=== PATIENT | female | born 1965 | race Caucasian/White ===

== ENCOUNTER 2017-07-10 06:27 | Day surgery (SDC) | payer OTHER ==
[~2017-07-10] VITALS: Ht 162.6 cm; Wt 76.7 kg
[~2017-07-10 06:27] MED LIST: MULTIVITAMINS1 EAC8 PO; PAIN RELIEVER1 EAC3 PO
[2017-07-10] MEDS ORDERED: BENADRYL25 MG PO (06:44)
--- NOTE | 2017-07-10 07:48 | NUR ---
07/10/17 0748 Dianelys Jerome TO PACU, RESP EVEN UNLABORED. AWAKENS TO LOUD VOICE
--- NOTE | 2017-07-10 11:33 | NUR ---
VISITRED WITH PT'S DOMENICO. HE SEEMED VERY CONFIDENT THAT TODAY WAS JUST A ROUTINE PROCEDURE. EXPRESSED CONFIDENCE IN CARE, WILL CONTINUE TO FOLLOW NEEDED
--- NOTE | 2017-07-18 10:10 | OR ---
[facility] [address], [place] [address] Signed DATE OF OPERATION: 07/10/2017 SURGEON: Leigh Brower MD PREOPERATIVE DIAGNOSIS: A sister with a history of colon cancer in late 50s. POSTOPERATIVE DIAGNOSES: 1. Minimal moderate sigmoid diverticulosis. 2. Minimal internal hemorrhoids. PROCEDURE: Colonoscopy without biopsy. ESTIMATED BLOOD LOSS: None. INDICATIONS: Autumn is a 52-year-old female, who was asked to see me for her initial colonoscopy. She explained that her sister was diagnosed with colon cancer in her late 50s or maybe even at age 60. Autumn herself has no lower GI complaints. She is familiar with colonoscopy via her . In the office, I gave her a pamphlet on colonoscopy and we looked at that together along with the risks including, but not limited to gas bloating, crampy abdominal pain, bleeding, perforation, requiring surgery, and missed diagnosis. We also discussed the need for IV conscious sedation. She told me she gets nauseated with IV conscious sedation, so we gave her preoperative Phenergan and Zofran IV. In addition, she used the [employer] brand for MiraLAX and it gave her hives, so she took some Benadryl, went back and bought the trade MiraLAX and used that without difficulties. She presents this morning for her colonoscopy. PROCEDURE NOTE: Autumn was taken into our endoscopy suite and placed in the left lateral decubitus position. She was given divided doses of 6 mg of Versed and 150 mcg of fentanyl. A digital rectal exam was performed and this was unremarkable. The adult colonoscope was introduced and advanced all around into the cecum under direct visualization of camera without difficulty. Her prep was good. The scope was slowly withdrawn. We took pictures throughout for photodocumentation. She does have minimal to moderate sigmoid diverticulosis. They were minimal to moderate in size and minimal to moderate in number and scattered about. The rectum itself was unremarkable. Upon retroflexion of scope, she has just minimal internal anal hemorrhoids with tiny skin tags. After this, the gas Electronically Signed By: LEIGH BROWER MD 07/18/17 1010 PATIENT NAME: AUTUMN CROCKER OPERATIVE REPORT DATE OF : 69 PHYSICIAN: LEIGH BROWER MD REPORT #: [id number] REPORT IS CONFIDENTIAL AND NOT TO BE RELEASED WITHOUT AUTHORIZATION [address] [address] Signed was suctioned out and the colonoscope removed. Autumn tolerated the procedure quite well. RECOMMENDATIONS: I can see Autumn back in my office in 5 years for repeat colonoscopy due to her family history. MD ALEX White/SHANNAL /[id number] cc: Baldemar Garsia MD Electronically Signed By: LEIGH BROWER MD 07/18/17 1010 PATIENT NAME: AUTUMN CROCKER OPERATIVE REPORT DATE OF : 69 PHYSICIAN: LEIGH BROWER MD REPORT #: [id number] REPORT IS CONFIDENTIAL AND NOT TO BE RELEASED WITHOUT AUTHORIZATION
== END 2017-07-10 08:30 | disposition home or self-care (01) ==
LOC: DS 06:27
PROVIDERS: Colon & Rectal Surgery
PROC: 0DJD8ZZ Inspection of Lower Intestinal Tract, Via Natural or Artificial Opening Endoscopic (ICD-10-PCS; principal; 2017-07-10 06:45)
DX: Z12.11 Encounter for screening for malignant neoplasm of colon (principal); K64.8 Other hemorrhoids; K57.30 Diverticulosis of large intestine without perforation or abscess without bleeding; E03.9 Hypothyroidism, unspecified; Z80.0 Family history of malignant neoplasm of digestive organs; Z87.891 Personal history of nicotine dependence; Z98.890 Other specified postprocedural states; Z88.8 Allergy status to other drugs, medicaments and biological substances; Z79.899 Other long term (current) drug therapy
CPT/HCPCS: 99152; J2250; J2405; J2550; J3010; J7120